=== PATIENT | male | born 1955 | race Caucasian/White ===

== ENCOUNTER 2017-03-01 12:46 | Inpatient (IN) ==
--- NOTE | 2017-02-28 22:02 | Discharge Summary ---
<Padmini Duff - Last Filed: 02/28/17 22:00> Date of Encounter: 02/28/17 - Discharge Diagnosis (1) Arthritis of right hip Priority: Primary Status: Acute (2) Status post total hip replacement, right Priority: Primary Status: Acute (3) COPD (chronic obstructive pulmonary disease) Priority: Secondary Status: Chronic Qualifiers: COPD type: unspecified COPD Qualified Code(s): J44.9 - Chronic obstructive pulmonary disease, unspecified (4) CAD (coronary artery disease) Priority: Secondary Status: Chronic Qualifiers: Coronary Disease-Associated Artery/Lesion type: [place] artery [place] vs. transplanted heart: prairie band heart Associated angina: without angina Qualified Code(s): I25.10 - Atherosclerotic heart disease of [place] band coronary artery without angina pectoris (5) HTN (hypertension) Priority: Secondary Status: Chronic Qualifiers: Hypertension type: essential hypertension Qualified Code(s): I10 - Essential (primary) hypertension (6) Tobacco abuse Priority: Secondary Status: Chronic - Discharge Medications Home Medications: Aspirin Enteric Coated [Aspirin EC] 325 mg PO DAILY #21 tablet.dr 02/28/17 [Rx] OxyCODONE Immed Rel [Roxicodone 5 MG] 5 - 10 mg PO Q6HR PRN #40 tablet 02/28/17 [Rx] Albuterol Sulfate [Albuterol Inhaler] 2 puff IH Q4HR PRN 03/01/17 [History] Aripiprazole [Abilify Maintena] 400 mg IM Q28D 03/01/17 [History] Aspirin [Lo-Dose Aspirin EC] 162 mg PO DAILY 03/01/17 [History] Atorvastatin Calcium [Lipitor] 40 mg PO HS 03/01/17 [History] Budesonide/Formoterol 160/4.5 [Symbicort 160/4.5] 2 puff IH BIDR 03/01/17 [ History] Carvedilol 12.5 mg PO BID 03/01/17 [History] Folic Acid 1 mg PO DAILY 03/01/17 [History] Ibuprofen [Motrin] 400 mg PO Q8HR 03/01/17 [History] Lisinopril [Zestril] 20 mg PO DAILY 03/01/17 [History] Mirtazapine [Remeron] 7.5 mg PO HS 03/01/17 [History] Multivitamin [One Daily Multivitamin] 1 each PO DAILY 03/01/17 [History] Thiamine Mononitrate [Vitamin B-1] 100 mg PO DAILY 03/01/17 [History] Tramadol HCl [Ultram] 50 mg PO BID PRN 03/01/17 [History] traZODone [TraZODone] 50 mg PO HS 03/01/17 [History] Allergies/Adverse Reactions: 3 Allergy/AdvReac Type Severity Reaction Status Date / Time bupropion AdvReac See Verified 03/01/17 13:53 Comments morphine AdvReac Headache Verified 03/01/17 13:53 Primary care physician: Sebastián Moreland MD - Patient Status Disposition: Transfer Inpatient Rehab Fac Condition: Good - Discharge Instructions Follow Up With: Sebastián Moreland MD [Primary Care Provider] - - Hospital Course Hospital course: Mr. Ceballos is a 62 year old male - Time Spent with Patient Total time spent providing and/or coordinating discharge services: <Henri Naranjo - Last Filed: 03/03/17 06:37> Date of Encounter: 03/03/17 Time of Encounter: 06:36 - Discharge Diagnosis (1) Arthritis of right hip Priority: Primary Status: Chronic (2) Status post total hip replacement, right Priority: Primary Status: Acute (3) COPD (chronic obstructive pulmonary disease) Priority: Secondary Status: Chronic Qualifiers: COPD type: unspecified COPD Qualified Code(s): J44.9 - Chronic obstructive pulmonary disease, unspecified (4) CAD (coronary artery disease) Priority: Secondary Status: Chronic Qualifiers: Coronary Disease-Associated Artery/Lesion type: [place] artery [place] vs. transplanted heart: prairie band heart Associated angina: without angina Qualified Code(s): I25.10 - Atherosclerotic heart disease of [place] coronary artery without angina pectoris (5) HTN (hypertension) Priority: Secondary Status: Chronic Qualifiers: Hypertension type: essential hypertension Qualified Code(s): I10 - Essential (primary) hypertension (6) Tobacco abuse Priority: Secondary Status: Chronic Primary care physician: Sebastián Moreland MD - Patient Status Functional capacity at discharge: uses cane/walker Overall status at discharge: patient is progressing back to baseline - Hospital Course Hospital course: Mr. Ceballos is a 62 year old male Status post right total hip replacement The patient had an uneventful postoperative course. They received antibiotics and physical therapy and were discharged in stable condition. There will follow -up in the office in 2 weeks. - Time Spent with Patient Total time spent providing and/or coordinating discharge services:
--- NOTE | 2017-02-28 22:05 | Physician Discharge Referral ---
<Padmini Duff - Last Filed: 02/28/17 22:04> Home Health/Hosp Referral Info Transfer to: Home Health Provider in Charge Post Discharge: PCP - Diagnosis (1) Arthritis of right hip Priority: Primary Status: Acute (2) Status post total hip replacement, right Priority: Primary Status: Acute (3) COPD (chronic obstructive pulmonary disease) Priority: Secondary Status: Chronic (4) CAD (coronary artery disease) Priority: Secondary Status: Chronic (5) HTN (hypertension) Priority: Secondary Status: Chronic (6) Tobacco abuse Priority: Secondary Status: Chronic - Respiratory Orders None Smoking Cessation: Smoking cessation has been advised. For more information, call the [place] Tobacco Quit Line at 3-712-IZQH-NOW. - Dressing/Wound Care Type of Dressing/Treatments w/Frequency: Opsite dressing, leave intact until first post-operative visit. If dressing becomes >50% saturated, contact office, remove dressing and place appropriate dressing in its place. Do not allow for dressing to get wet. Mohall in place, plan to remove at post-operative day #14-16. Total Joint Precautions x 6 weeks Apply cold therapy wrap 3-6x/day for 20 minutes at a time. Encourage ambulation throughout the day Use Incentive spirometer 10x/hour. Elevate affected extremity above heart as tolerated. Brace: Wear hip abduction brace at night x 6 weeks. - Transfer Medications Home Medications: Aspirin Enteric Coated [Aspirin EC] 325 mg PO DAILY #21 tablet. 02/28/17 [Rx] OxyCODONE Immed Rel [Roxicodone 5 MG] 5 - 10 mg PO Q6HR PRN #40 tablet 02/28/17 [Rx] Albuterol Sulfate [Albuterol Inhaler] 2 puff IH Q4HR PRN 03/01/17 [History] Aripiprazole [Abilify Maintena] 400 mg IM Q28D 03/01/17 [History] Aspirin [Lo-Dose Aspirin EC] 162 mg PO DAILY 03/01/17 [History] Atorvastatin Calcium [Lipitor] 40 mg PO HS 03/01/17 [History] Budesonide/Formoterol 160/4.5 [Symbicort 160/4.5] 2 puff IH BIDR 03/01/17 [ History] Carvedilol 12.5 mg PO BID 03/01/17 [History] Folic Acid 1 mg PO DAILY 03/01/17 [History] Ibuprofen [Motrin] 400 mg PO Q8HR 03/01/17 [History] Lisinopril [Zestril] 20 mg PO DAILY 03/01/17 [History] Mirtazapine [Remeron] 7.5 mg PO HS 03/01/17 [History] Multivitamin [One Daily Multivitamin] 1 each PO DAILY 03/01/17 [History] Thiamine Mononitrate [Vitamin B-1] 100 mg PO DAILY 03/01/17 [History] Tramadol HCl [Ultram] 50 mg PO BID PRN 03/01/17 [History] traZODone [TraZODone] 50 mg PO HS 03/01/17 [History] Allergies/Adverse Reactions: 3 Allergy/AdvReac Type Severity Reaction Status Date / Time bupropion AdvReac See Verified 03/01/17 13:53 Comments morphine AdvReac Headache Verified 03/01/17 13:53 Certification: Further, I certify that my clinical findings support that this patient is homebound (i.e. absences from home require considerable and taxing effort and are for medical reasons or methodist services or infrequently or short duration when for other reasons) because: Attestation: My signature below is to certify that this patient is under my care and that I, or nurse practitioner, or a physician's hospital aides and assistants teacher working with me, has a face-to -face encounter with this patient. <Henri Naranjo - Last Filed: 03/03/17 06:38> - Diagnosis (1) Arthritis of right hip Status: Chronic (2) Status post total hip replacement, right Status: Acute (3) COPD (chronic obstructive pulmonary disease) Status: Chronic (4) CAD (coronary artery disease) Status: Chronic (5) HTN (hypertension) Status: Chronic (6) Tobacco abuse Status: Chronic - Respiratory Orders Smoking Cessation: Smoking cessation has been advised. For more information, call the [place] Tobacco Quit Line at 8-725-YWQL-NOW. Certification: Further, I certify that my clinical findings support that this patient is homebound (i.e. absences from home require considerable and taxing effort and are for medical reasons or methodist services or infrequently or short duration when for other reasons) because: Homebound Reason: Patient requires assistance of a person or device to safely leave home Attestation: My signature below is to certify that this patient is under my care and that I, or nurse practitioner, or a physician's hospital aides and assistants teacher working with me, has a face-to -face encounter with this patient.
--- NOTE | 2017-03-01 12:56 | History & Physical Report ---
Date of Encounter: 03/01/17 Time of Encounter: 12:56 24 Hour HP Update - Instructions Instructions: If the History and Physical is less than 30 days old and was completed prior to A.M. admission and or procedure and has NOT been updated on calendar day of procedure please complete this update prior to performing procedure. - Update Patient reports changes in Medical Condition: No Changes in examination, assessment, or condition: No Changes in Medication: No Preop tests/diagnostics Reviewed: Yes Surgery Remains Indicated: Yes Consent for Planned Operative Procedure(s) Verified: Yes - Pre-Operative Checklist Preoperative Checklist Indicated: No Prophylactic Antibiotic Ordered: Yes Is VTE Prophylaxis Indicated?: Yes
[2017-03-01] MEDS ORDERED: Ondansetron 4 MG/2 ML VIAL ONE (13:06)
[2017-03-01] MEDS ORDERED: *HR* FentaNYL (PF) 100 MCG/2 ML VIAL ONE (13:06)
[2017-03-01] MEDS ORDERED: *HR* Midazolam HCl 2 MG/2 ML VIAL ONE (13:06)
[2017-03-01] MEDS ORDERED: Dexamethasone 4 MG/ML VIAL ONE (13:06)
[2017-03-01] MEDS ORDERED: *HR* Propofol 200 MG/20 ML VIAL IVP ONE (13:06)
[2017-03-01] MEDS ORDERED: Gabapentin 300 MG CAPSULE PO ONE (13:10)
[2017-03-01] MEDS ORDERED: Famotidine 20 MG/2 ML VIAL IVP ONE (13:10)
[2017-03-01] MEDS ORDERED: Plasma-Lyte A (PH 7.4) 1,000 ML IVC SCH (13:15)
--- NOTE | 2017-03-01 13:24 | Anesthesia Evaluation PreOp ---
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 02/28/17 [Rx] OxyCODONE Immed Rel [Roxicodone 5 MG] 5 - 10 mg PO Q6HR PRN #40 tablet 02/28/17 [Rx] 3 Allergy/AdvReac Type Severity Reaction Status Date / Time No Known Allergies Allergy Verified 04/22/15 13:58 - Meds/Allergy Pre-op Review Medications Reviewed: Yes Allergies Reviewed: Yes Beta Blockers on Current Med List: Yes (On Coreg) Anesthesia Results - Labs Laboratory Tests 02/18/17 02/18/17 09:30 09:30 Hgb 17.0 H Hct 50.1 Plt Count 175 Sodium 139 Potassium 4.0 BUN 14 Creatinine 1.07 - Imaging EKG: report reviewed (Sinus Rhytmn BBB) Additional studies: ECHO 2015 EF 60% Anesthesia Exam O2 Sat Height 1.8 m Weight 71.668 kg Height: 5'11 Weight: 158 lbs NPO (# of Hours): MN Pain Scale: 0 - HEENT Pupil (Motor): Pupils equal, EOMI Mallampati: II Teeth: Edentulous Denture Type: Upper: Complete Oral Opening: Greater than 3 - 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
[2017-03-01] MEDS ORDERED: Albuterol 2.5 MG/3 ML NEBULIZER IH ONE (13:30)
[2017-03-01] MEDS ORDERED: Vancomycin 1,000 MG in D5% in Water 250 ML IVPB ONE (13:30)
[2017-03-01] MEDS ORDERED: Albuterol 2.5 MG/3 ML NEBULIZER ONE (13:32)
--- NOTE | 2017-03-01 13:57 | Anesthesia Procedures ---
Date of Encounter: 03/01/17 Time of Encounter: 13:22 Procedures: Anesthesia - Nerve Block Procedure Date: 03/01/17 Time: 13:45 Pre-op Diagnosis: Rt Hip OA Surgical Procedure: Rt THR Checklist: Correct Patient Identifier Correct side: Right Blood Thinner: No Monitor Applied: EKG, BP, Pulse Oximetry Supplemental Oxygen via Nasal Cannula (L/min): 2 Sedation: Versed (mg): 2 Sedation: Fentanyl (mcg): 100 Indication: Post Op Analgesia Pre-op Neuro Deficits: No Block Type: Other (Fascia [place] Block) Catheter placed: No Depth at skin (cm): 2 Sterile Technique: Yes Ultrasound used: Yes Anatomy identified: Yes Visual spread of Local: Yes Neuro Stimulation: No Blood on Needle Aspiration: No Smooth Injection of Local: Yes Pain with Injection of Local: No Prep: Chlorhexadine Needle: 22 x 50 mm Stimuplex Local: 0.25% Bupivicaine w/Clonidine 20 mcg/cc Volume (cc): 60 Number of Attempts: 1 Complications: None/effective block Vitals: Vital Signs/O2 Sat/Glucose, Most Current Temp Pulse Resp BP Pulse Ox 03/01/17 13:46 74 15 120/84 93 03/01/17 13:42 97.7 F 78 18 116/75 95
[2017-03-01] MEDS ORDERED: *HR* HYDROmorphone 2 MG/ML SYRINGE ONE (14:17)
[2017-03-01] MEDS ORDERED: Ondansetron 4 MG/2 ML VIAL IVP PRN ×2 (14:20→16:06)
[2017-03-01] MEDS ORDERED: Naloxone 0.4 MG/ML INJ IVP PRN ×2 (14:20→16:06)
[2017-03-01] MEDS ORDERED: *HR* Meperidine 25 MG/ML SYRINGE IVP PRN (14:20)
--- NOTE | 2017-03-01 14:46 | Orthopedic Operative Note ---
Date of procedure: 03/01/17 Pre-op diagnosis: Right hip arthritis Post-op diagnosis: same Procedure: Procedure: Right Total Hip Replacment Estimated blood loss: 200 cc Hardware: Metal and polyethylene replacement. Biomet DM Cup: 58 G7 fin cup Femoral size 12 echo full profile lateralized stem Head: head with Mechelle 0 Procedural Notes: Flexion contracture 30 degrees grade 4 arthritic changes femoral head acetabular socket. Operative procedure: The patient was brought to the operating room and placed on the operating room table. After general anesthesia was administered the patient was placed in the lateral decubitus position with the operative leg up. All pressure points were padded appropriately and the head was stabilized in the neutral position. The operative extremity was prepped and draped in the sterile surgical fashion patient received IV antibiotic prior to skin incision. A standard posterior approach is made to the operative hip, the incision was made through the skin and subcutaneous tissue hemostasis was obtained with Bovie cautery. Using careful sharp dissection the fascia was identified and incised exposing the external rotators. The external rotators were released off the greater trochanter and tagged with #2 FiberWire suture. The capsule was T'd open and the hip was brought into internal rotation. Patient noted to have grade 4 arthritic changes femoral head. The femoral neck cut was made at the appropriate level. An anterior capsulotomy was performed for the anterior retractor. Soft tissues removed from the acetabulum. Patient noted to have grade 4 arthritic changes acetabulum. Acetabulum was first reamed medially, and then reamed in 15 degrees of anteversion and 45 degrees off the horizontal. It was reamed up to the appropriate size 58 The appropriate-sized STA acetabular cup was impacted in place in 15 degrees of anteversion and 45 degrees off the horizontal. This had good fit and fixation. The hip was brought back in to internal rotation and prepared with the air box tester followed by the canal finder followed by broaching process in 20 degrees anteversion. It was broached up to the appropriate size 12 The femoral implant was impacted in place in 20 degrees of anteversion. Trial reduction found the hip to be stable with 0 head and Mechelle. The trials were removed and the real implants were impacted in place. The hip was reduced, patient had apparent equal leg lengths. The hip had excellent stability with forward flexion to 90 degrees adduction of 30 degrees and internal rotation of 60 degrees. The hip had no shuck. The hips after 2 minutes with a Betadine saline solution. It was irrigated out with 2 L of pulse irrigation. The PA closed the hip. Fascia was closed with a running #2 PDS suture. The deep tissue was irrigated and closed deep with #1 PDS suture superficially with 0 PDS suture and skin was closed with Dermabond and skin shayan. The patient was placed in a sterile dressing and abduction pillow. The patient was extubated and transferred to the recovery room in stable condition. Anesthesia: GETA Surgeon: Henri Naranjo Condition: stable Disposition: PACU
[2017-03-01] MEDS: *HR* HYDROmorphone (PF) 1 MG/ML SYRINGE IVP PRN ×4 (15:13→20:47)
[2017-03-01 15:25] LABS: Hematocrit 44.9 % (37.5-50.1); Hemoglobin 15.2 g/dL (12.9-16.9)
--- NOTE | 2017-03-01 15:39 | Anesthesia Evaluation Post Op ---
Date of Encounter: 03/01/17 Time of Encounter: 15:38 - Vital Signs Vital Signs: Vital Signs/O2 Sat/Glucose, Most Current Temp Pulse Resp BP Pulse Ox 03/01/17 15:25 62 11 112/77 100 03/01/17 15:15 64 10 122/77 97 03/01/17 15:05 97.8 F 64 18 149/87 98 03/01/17 13:46 74 15 120/84 93 03/01/17 13:42 97.7 F 78 18 116/75 95 - Lungs Lungs: Clear Ascult./Percussion - Airway Airway: Non-obstructed - Cardiovascular Regular Rate, Baseline Rhythm - Mental Status Mental Status: Alert & Oriented, Answers Appropriately - Pain Pain Scale: 8 Pain Scale used: Numeric (1 - 10) - Nausea Vomiting Nausea Vomiting: Not Present - Hydration Hydration: Ice chips, Able to void - Discharge PostOp Status: Transfer Patient to floor
[2017-03-01] MEDS ORDERED: traMADol 50 MG TABLET PO PRN (16:06)
[2017-03-01] MEDS ORDERED: Temazepam 15 MG CAPSULE PO PRN (16:06)
[2017-03-01] MEDS ORDERED: Sennosides 8.6 MG TABLET PO PRN (16:06)
[2017-03-01] MEDS ORDERED: Ringers Solution, Lactated 1,000 ML IVC SCH (16:06)
[2017-03-01] MEDS ORDERED: *HR* OxyCODONE Immed Rel 5 MG TABLET PO PRN (16:06)
[2017-03-01] MEDS ORDERED: ceFAZolin 2,000 MG in D5% in Water 100 ML IVPB SCH (16:06)
[2017-03-01] MEDS ORDERED: MOM Conc 10 ML UD.LIQ PO PRN (16:06)
[2017-03-01] MEDS: Ibuprofen 400 MG TABLET PO SCH ×2 (16:23→23:51)
[2017-03-01] MEDS: Ascorbic Acid 500 MG TABLET PO SCH (16:24)
[2017-03-01] MEDS: *HR* OxyCODONE Immed Rel 5 MG TABLET PO PRN (16:31)
[2017-03-01] MEDS: *HR* Enoxaparin 30 MG/0.3 ML SYRINGE SQ SCH (16:33)
[2017-03-01] MEDS ORDERED: *HR* Enoxaparin 30 MG/0.3 ML SYRINGE SQ SCH (18:00)
[2017-03-01] MEDS: Mirtazapine 15 MG TABLET PO SCH (20:48)
[2017-03-01] MEDS: traZODone 50 MG TABLET PO SCH (20:48)
[2017-03-01] MEDS: Nicotine 21 MG PATCH.TD24 TD SCH (21:30)
[2017-03-01] MEDS: ceFAZolin 2,000 MG in D5% in Water 100 ML IVPB SCH (23:51)
[2017-03-02] MEDS: *HR* HYDROmorphone (PF) 1 MG/ML SYRINGE IVP PRN ×4 (00:50→19:16)
[2017-03-02] MEDS: *HR* Enoxaparin 30 MG/0.3 ML SYRINGE SQ SCH ×2 (06:11→17:06)
[2017-03-02 06:17] LABS: Hematocrit 36.2 % (37.5-50.1)
[2017-03-02] MEDS: *HR* OxyCODONE Immed Rel 5 MG TABLET PO PRN ×4 (06:18→20:27)
[2017-03-02 06:25] LABS: Hemoglobin 12.2 g/dL (12.9-16.9)
--- NOTE | 2017-03-02 06:27 | Orthopedics Progress Note ---
Date of Encounter: 03/02/17 Time of Encounter: 06:26 - Assessment and Plan (1) Arthritis of right hip Current Visit: Yes Status: Chronic (2) Status post total hip replacement, right Current Visit: Yes Status: Acute (3) COPD (chronic obstructive pulmonary disease) Current Visit: Yes Status: Chronic Qualifiers: COPD type: unspecified COPD Qualified Code(s): J44.9 - Chronic obstructive pulmonary disease, unspecified (4) CAD (coronary artery disease) Current Visit: Yes Status: Chronic Qualifiers: Coronary Disease-Associated Artery/Lesion type: [place] artery [place] vs. transplanted heart: [place] heart Associated angina: without angina Qualified Code(s): I25.10 - Atherosclerotic heart disease of [place] coronary artery without angina pectoris (5) HTN (hypertension) Current Visit: Yes Status: Chronic Qualifiers: Hypertension type: essential hypertension Qualified Code(s): I10 - Essential (primary) hypertension (6) Tobacco abuse Current Visit: Yes Status: Chronic Subjective Interval history: Patient was seen this morning doing well without complaints. Afebrile vital signs stable. Operative extremity: Neurovascularly intact Dressing clean dry and intact Calves nontender Assessment and plan: Continue with postoperative care hct 36 Objective Vital signs: Vital Signs Temp Pulse Resp BP Pulse Ox 03/02/17 04:26 98.7 F 67 16 90/63 92 03/02/17 00:24 98.5 F 93 16 109/70 94 03/01/17 19:16 98.8 F 86 15 92/62 95 03/01/17 18:53 98.9 F 90 16 103/74 94 03/01/17 18:06 98.4 F 92 16 101/74 94 03/01/17 17:04 97.9 F 70 16 119/82 93 03/01/17 16:33 97.9 F 66 16 138/73 94 03/01/17 16:02 98.0 F 62 16 134/81 94 03/01/17 15:45 97.9 F 62 11 112/77 100 03/01/17 15:35 97.9 F 64 12 126/83 96 03/01/17 15:25 61 16 131/79 99 03/01/17 15:15 64 10 122/77 97 03/01/17 15:05 97.8 F 64 18 149/87 98 03/01/17 13:46 74 15 120/84 93 03/01/17 13:42 97.7 F 78 18 116/75 95 Intake and Output 03/01/17 03/01/17 03/02/17 15:59 23:59 07:59 Intake Total 240 / 240 Output Total 200 / 200 280 / 280 Balance -200 / -200 -40 / -40 Intake: Oral 240 / 240 Output: Urine 0 / 0 280 / 280 Estimated Blood Loss 200 / 200 Other: Meal Dinner Percent of Meal Consumed 90% Weight 71.668 kg 74 kg Patient Weight 03/02/17 23:59 Weight 74 kg - Labs CBC & BMP: 03/02/17 05:56 Labs: Abnormal lab results Hgb 12.2 g/dL (12.9-16.9) L D 03/02/17 05:56 Hct 36.2 % (37.5-50.1) L 03/02/17 05:56 - VTE Documentation of Mechanical Device: Venous foot pump, device Consult Discharge Plan - Plan Referrals: Sebastián Moreland MD [Primary Care Provider] -
[2017-03-02 06:29] LABS: BUN/Creatinine Ratio 19 (6-26); Blood Urea Nitrogen 19 mg/dL (8-26); Calcium 8.3 mg/dL (8.6-10.8); Carbon Dioxide 24 mEq/L (19-29); Chloride 106 mEq/L (98-109); Glucose 116 mg/dL (70-99); Osmolality,Calculated 287 (280-300); Potassium 4.1 mEq/L (3.5-4.5); Sodium 137 mEq/L (136-145); eGFR For African Americans > 60 (> 60); eGFR For Non-African Americans > 60 (> 60)
[2017-03-02] MEDS ORDERED: Acetaminophen IV 1,000 MG/100 ML INFUS..BTL IVPB PRN (07:36)
[2017-03-02] MEDS: Nicotine 21 MG PATCH.TD24 TD SCH (07:54)
[2017-03-02] MEDS: Ibuprofen 400 MG TABLET PO SCH ×3 (07:55→23:57)
[2017-03-02] MEDS: Aspirin Enteric Coated 81 MG Tablet PO SCH (07:55)
[2017-03-02] MEDS: Folic Acid 1 MG TABLET PO SCH (07:55)
[2017-03-02] MEDS: Multivit/Ca/Min/Fe/FA 1 TAB TABLET PO SCH (07:56)
[2017-03-02] MEDS: Ascorbic Acid 500 MG TABLET PO SCH ×2 (07:56→16:17)
[2017-03-02] MEDS: Thiamine (B-1) 100 MG TABLET PO SCH (07:56)
[2017-03-02] MEDS: ceFAZolin 2,000 MG in D5% in Water 100 ML IVPB SCH (07:57)
[2017-03-02] MEDS: Tiotropium 18 MCG inhalation IH SCH (08:18)
[2017-03-02] MEDS ORDERED: NON-FORMULARY MEDICATION 1 EACH EACH (Multivitamin [One Daily Multivitamin] 1 EACH) PO SCH (09:00)
--- NOTE | 2017-03-02 12:23 | Event Note ---
Date of Encounter: 03/02/17 Time of Encounter: 12:22 PCR - Right THR POD#1. C/M - COPD, CAD< HTN, tobacco use, Carotid stenosis, Low O2 Patient seen at bedside. Pain control: yes Participating in PT. All questions and concerns addressed. Educated on use of incentive spirometer, ambulation, and hydration. Patient educated on post-operative restrictions and care. D/C plan:.ECF recommedations currently, may be able to D/C with HH
[2017-03-02] MEDS: Mirtazapine 15 MG TABLET PO SCH (20:27)
[2017-03-02] MEDS: traZODone 50 MG TABLET PO SCH (20:27)
[2017-03-03] MEDS: *HR* OxyCODONE Immed Rel 5 MG TABLET PO PRN ×3 (00:31→09:05)
[2017-03-03] MEDS: *HR* HYDROmorphone (PF) 1 MG/ML SYRINGE IVP PRN (03:53)
[2017-03-03] MEDS: *HR* Enoxaparin 30 MG/0.3 ML SYRINGE SQ SCH (05:12)
--- NOTE | 2017-03-03 06:38 | Orthopedics Progress Note ---
Date of Encounter: 03/03/17 Time of Encounter: 06:37 - Assessment and Plan (1) Arthritis of right hip Current Visit: Yes Status: Chronic (2) Status post total hip replacement, right Current Visit: Yes Status: Acute (3) COPD (chronic obstructive pulmonary disease) Current Visit: Yes Status: Chronic Qualifiers: COPD type: unspecified COPD Qualified Code(s): J44.9 - Chronic obstructive pulmonary disease, unspecified (4) CAD (coronary artery disease) Current Visit: Yes Status: Chronic Qualifiers: Coronary Disease-Associated Artery/Lesion type: [place] artery [place] vs. transplanted heart: [place] heart Associated angina: without angina Qualified Code(s): I25.10 - Atherosclerotic heart disease of [place] coronary artery without angina pectoris (5) HTN (hypertension) Current Visit: Yes Status: Chronic Qualifiers: Hypertension type: essential hypertension Qualified Code(s): I10 - Essential (primary) hypertension (6) Tobacco abuse Current Visit: Yes Status: Chronic Subjective Interval history: Patient was seen this morning doing well without complaints. Afebrile vital signs stable. Operative extremity: Neurovascularly intact Dressing clean dry and intact Calves nontender Assessment and plan: Continue with postoperative care hct 36 discharged today Objective Vital signs: Vital Signs Temp Pulse Resp BP Pulse Ox 03/02/17 23:49 98.3 F 66 18 105/69 96 03/02/17 21:19 97.9 F 75 18 108/74 93 03/02/17 14:47 98.2 F 71 18 104/72 96 03/02/17 11:17 65 104/62 03/02/17 10:59 97.9 F 66 18 110/73 92 03/02/17 08:43 115/63 03/02/17 08:21 15 92 03/02/17 07:18 99.2 F 60 16 99/70 92 Intake and Output 03/02/17 03/02/17 03/03/17 15:59 23:59 07:59 Intake Total 460 / 460 300 / 300 Output Total 400 / 400 450 / 450 500 / 500 Balance 60 / 60 -150 / -150 -500 / -500 Intake: Oral 460 / 460 300 / 300 Output: Urine 400 / 400 450 / 450 500 / 500 Other: Meal Breakfast Percent of Meal Consumed 75% - Labs CBC & BMP: 03/02/17 05:56 03/02/17 05:56 Labs: Abnormal lab results Hgb 12.2 g/dL (12.9-16.9) L D 03/02/17 05:56 Hct 36.2 % (37.5-50.1) L 03/02/17 05:56 Glucose 116 mg/dL (70-99) H 03/02/17 05:56 Calcium 8.3 mg/dL (8.6-10.8) L 03/02/17 05:56 - VTE Documentation of Mechanical Device: Venous foot pump, device Consult Discharge Plan - Plan Referrals: Sebastián Moreland MD [Primary Care Provider] -
[2017-03-03 06:46] LABS: Hematocrit 33.8 % (37.5-50.1); Hemoglobin 11.1 g/dL (12.9-16.9)
[2017-03-03 06:57] LABS: BUN/Creatinine Ratio 13 (6-26); Blood Urea Nitrogen 12 mg/dL (8-26); Calcium 8.5 mg/dL (8.6-10.8); Carbon Dioxide 27 mEq/L (19-29); Chloride 106 mEq/L (98-109); Glucose 103 mg/dL (70-99); Osmolality,Calculated 286 (280-300); Potassium 4.1 mEq/L (3.5-4.5); Sodium 138 mEq/L (136-145); eGFR For African Americans > 60 (> 60); eGFR For Non-African Americans > 60 (> 60)
[2017-03-03] MEDS: Tiotropium 18 MCG inhalation IH SCH (07:55)
[2017-03-03 09:05] VITALS: BP 137/74
[2017-03-03] MEDS: Nicotine 21 MG PATCH.TD24 TD SCH (09:05)
[2017-03-03] MEDS: Folic Acid 1 MG TABLET PO SCH (09:06)
[2017-03-03] MEDS: Ibuprofen 400 MG TABLET PO SCH (09:06)
[2017-03-03] MEDS: Aspirin Enteric Coated 81 MG Tablet PO SCH (09:06)
[2017-03-03] MEDS: Ascorbic Acid 500 MG TABLET PO SCH (09:06)
[2017-03-03] MEDS: Thiamine (B-1) 100 MG TABLET PO SCH (09:06)
[2017-03-03] MEDS: Multivit/Ca/Min/Fe/FA 1 TAB TABLET PO SCH (09:06)
--- NOTE | 2017-03-03 11:13 | Physician Discharge Referral ---
ExtendedCare Referral Info Transfer To: [facility] Provider in Charge: Provider in Charge after Transfer: PCP Institutional Level of Care: Skilled - Diagnosis (1) Arthritis of right hip Priority: Primary Status: Chronic (2) Status post total hip replacement, right Priority: Primary Status: Acute (3) COPD (chronic obstructive pulmonary disease) Priority: Secondary Status: Chronic (4) CAD (coronary artery disease) Priority: Secondary Status: Chronic (5) HTN (hypertension) Priority: Secondary Status: Chronic (6) Tobacco abuse Priority: Secondary Status: Chronic Expected Duration of Placement: < 30 days Prognosis: Good Aware of Diagnosis: Patient Aware of Prognosis: Patient - Transfer Medications Home Medications: Aspirin Enteric Coated [Aspirin EC] 325 mg PO DAILY #21 tablet. 02/28/17 [Rx] OxyCODONE Immed Rel [Roxicodone 5 MG] 5 - 10 mg PO Q6HR PRN #40 tablet 02/28/17 [Rx] Albuterol Sulfate [Albuterol Inhaler] 2 puff IH Q4HR PRN 03/01/17 [History] Aripiprazole [Abilify Maintena] 400 mg IM Q28D 03/01/17 [History] Aspirin [Lo-Dose Aspirin EC] 162 mg PO DAILY 03/01/17 [History] Atorvastatin Calcium [Lipitor] 40 mg PO HS 03/01/17 [History] Budesonide/Formoterol 160/4.5 [Symbicort 160/4.5] 2 puff IH BIDR 03/01/17 [ History] Carvedilol 12.5 mg PO BID 03/01/17 [History] Folic Acid 1 mg PO DAILY 03/01/17 [History] Ibuprofen [Motrin] 400 mg PO Q8HR 03/01/17 [History] Lisinopril [Zestril] 20 mg PO DAILY 03/01/17 [History] Mirtazapine [Remeron] 7.5 mg PO HS 03/01/17 [History] Multivitamin [One Daily Multivitamin] 1 each PO DAILY 03/01/17 [History] Thiamine Mononitrate [Vitamin B-1] 100 mg PO DAILY 03/01/17 [History] Tramadol HCl [Ultram] 50 mg PO BID PRN 03/01/17 [History] traZODone [TraZODone] 50 mg PO HS 03/01/17 [History] Allergies/Adverse Reactions: 3 Allergy/AdvReac Type Severity Reaction Status Date / Time bupropion AdvReac See Verified 03/01/17 13:53 Comments morphine AdvReac Headache Verified 03/01/17 13:53 - Respiratory Orders None Smoking Cessation: Smoking cessation has been advised. For more information, call the [place] [facility] Quit Line at 1-217-CYQK-NOW. - Ancillary Orders May use pressure relief devices daily prn, May go on ZAIRA w/family/respon alliance party w /meds at nurse discretion PRN, May consult with Dentist, Clothing Consultant, Histologist PRN - Mobility Orders Chair, Ambulate - Rehabiliation Orders Rehab Potential: Good Rehab Orders: ROM Exercises, Evaluation for Physical Therapy, Evaluation for Occupational Therapy - Treatments List/Other: Opsite dressing, leave intact until first post-operative visit. If dressing becomes >50% saturated, contact office, remove dressing and place appropriate dressing in its place. Do not allow for dressing to get wet. [place] in place, plan to remove at post-operative day #14-16. Total HIP Precautions x 6 weeks Apply cold therapy 3-6x/day for 20 minutes at a time. Encourage ambulation throughout the day Use Incentive spirometer 10x/hour. Elevate affected extremity above heart as tolerated. Brace: Wear hip ABD brace at night x 6 weeks. CERTIFICATION: I certify that the transfer of the above named patient to an Extended Care Facility is necessary for the continuing treatment of the diagnosis listed. The above information is true and accurate reflection of patient's current condition. Confidential - Redisclosure prohibited without a patient's written consent.
== END 2017-03-03 11:40 | DRG 470 ==
LOC: SAMDAY 12:46 → 3NENU 15:51
PROVIDERS: ADMIT Orthopaedic Surgery; ATTEND Orthopaedic Surgery